=== PATIENT | female | born 1990 | race Two or more races ===

== ENCOUNTER 2023-08-06 03:23 | Emergency (ER) | payer OTHER ==
[~2023-08-06] VITALS: Ht 152.4 cm; Wt 61.0 kg
[~2023-08-06 03:23] MED LIST: NOCURR
[2023-08-06 03:28] VITALS: BP 120/82; PULSE 88; RESP 18; TEMP 97.7
== END 2023-08-06 05:00 | disposition home or self-care (01) ==
LOC: EMS 03:23
DX: R51.9 Headache, unspecified (principal); I10 Essential (primary) hypertension; Z88.0 Allergy status to penicillin; Z98.890 Other specified postprocedural states
CPT/HCPCS: 99281; Z7502